=== PATIENT | male | born 1995 | race Caucasian/White ===

== ENCOUNTER 2025-02-15 18:49 | Emergency (ER) | payer OTHER, SELFPAY ==
[2025-02-15 18:58] VITALS: BP 135/88
[2025-02-15 19:12] LABS: Hematocrit 39.2 % (39.0-52.0); Hemoglobin 13.8 g/dL (13.0-18.0); Mean Corp Hgb Conc. 35.2 g/dL (33.0-37.0); Mean Corpuscular Volume 87.3 fL (80.0-94.0); Nucleated Red Blood Cells % 0 % (-); Platelet Count 243 10^3/uL (130-400); Red Cell Dist. Width 11.5 % (11.5-14.5)
[2025-02-15 19:36] LABS: ALT (SGPT) 30 U/L (0-50); AST (SGOT) 23 U/L (17-59); Albumin 4.8 g/dl (3.5-5.0); Alkaline Phosphatase 54 U/L (38-126); Blood Urea Nitrogen 19 mg/dl (9-20); Calcium 9.8 mg/dl (8.4-10.2); Carbon Dioxide 27 mmol/L (22-30); Chloride 104 mmol/L (98-107); Glucose 108 mg/dl (70-99); Potassium 4.2 mmol/L (3.5-5.1); Sodium 138 mmol/L (135-145); Total Protein 6.9 g/dl (6.3-8.2); eGFR > 60.00
[2025-02-15 19:47] LABS: Troponin I < 0.012 ng/ml
--- NOTE | 2025-02-15 20:24 | ED.GENMED ---
History of Present Illness
General
Chief Complaint: Chest Pain
Time Seen by Provider: 02/15/25 20:23
History of Present Illness
History of Present Illness:
TIME OF INITIAL EVALUATION
- 8:30 PM
REVIEW OF OLD RECORDS
- The patient has no significant past medical history, the patient was seen here 2012 with shortness of breath.
CHIEF COMPLAINT(S)
Mild chest pain and mid-back pain.
HISTORY OF PRESENT ILLNESS
The patient is a 29-year-old male who presented to the emergency department at approximately 3:30 p.m. with complaints of mild chest pain and mid-back pain. The patient describes the chest pain as being aggravated by taking a deep breath.
Specifically, exhalation is unaffected, but inhalation to a certain threshold level causes significant discomfort, rated as eight to ten out of ten in severity. He feels the sensation as though the lungs are constricted or tightened. The patient has
no history of similar episodes prior to this event. He reports being able to inhale only shallowly due to the pain, which has been disrupting his normal breathing pattern. The discomfort does not seem to be exacerbated by palpation of the chest, and
he denies any recent injuries. There are no reported instances of leg swelling. The patient was ill last week but denied any significant ongoing symptoms related to that illness.
PHYSICAL EXAM
General: Alert, no acute distress.
Skin: Warm, dry.
Head: Normocephalic, atraumatic.
Neck: Supple, trachea midline.
Eye Ears, nose, mouth and throat: Oral mucosa moist.
Cardiovascular: Normal peripheral perfusion, No edema.
Respiratory: Respirations are non-labored.
Gastrointestinal: Abdomen nondistended.
Back: Normal range of motion, Normal alignment.
Musculoskeletal: Normal ROM, normal strength.
Neurological: Alert and oriented to person, place, time and situation, No focal neurological deficit observed.
Psychiatric: Cooperative, appropriate mood & affect.
PLAN
- Obtain a chest X-ray to further evaluate the complaint of chest pain.
- Conduct screening tests to rule out a possible pulmonary embolism.
- Administer intravenous Toradol, a non-narcotic anti-inflammatory medication, to manage potential chest wall inflammation.
- Monitor the patient to assess response to the treatment and reassess if necessary.
DIFFERENTIAL DIAGNOSIS
The Differential Diagnosis includes, in no particular order and is not limited to:
1. Pleurisy
2. Pericarditis
3. Musculoskeletal chest wall inflammation
4. Pulmonary embolism
5. Costochondritis
6. Pneumonia
7. Gastroesophageal reflux disease (GERD)
8. Anxiety or panic attack
9. Pneumothorax
10. Myocardial ischemia
RADIOLOGY
- Chest x-ray shows no acute abnormality including no pneumothorax
EKG
- Sinus 69 borderline LVH, no acute abnormality, suspect early repolarization
LABS
- CBC and chemistries unremarkable, troponin less than 0.012
UPDATE
-SUMMARY OF ENCOUNTER
The patient, a 29-year-old male, presented to the emergency department with mild chest pain and mid-back pain, reporting that his discomfort was exacerbated by deep inhalation. His condition was evaluated with a chest X-ray and laboratory screening
tests, including a D-dimer, to rule out pulmonary embolism. An electrocardiogram (EKG) was conducted and showed no signs of a heart attack. The patients chest X-ray and blood tests did not indicate a pneumothorax or any signs of a blood clot. While
no definitive diagnosis was established, the chest pain was suspected to be due to non-cardiac causes, potentially stemming from inflammation of the lung lining or chest wall. The decision was made to manage his symptoms with non-narcotic
anti-inflammatory medication, and he was given reassurance and clear follow-up advice.
DISPOSITION
Discharge
ASSESSMENT
The assessment included consideration of possible chest wall inflammation or pleurisy, given the absence of findings indicative of more serious conditions, such as myocardial infarction, pulmonary embolism, or pneumothorax.
EMERGENCY TREATMENTS ADMINISTERED
The patient received intravenous ketorolac (Toradol) to manage inflammation-related chest pain.
PLAN
The plan included discharging the patient with instructions to continue using an anti-inflammatory medication such as ibuprofen to manage inflammation and discomfort. The patient was advised to seek further medical evaluation if symptoms worsened.
INDEPENDENT REVIEW OF LABS AND INTERPRETATION OF TESTS
My independent review of the D-dimer test indicates no evidence of blood clots.
My independent review of the EKG shows no signs of a heart attack.
My independent interpretation of the chest X-ray does not reveal a pneumothorax or any acute pathology.
PATIENT EDUCATION AND COUNSELING
The patient was counseled on the probable benign nature of the chest pain and was advised on the use of ibuprofen to alleviate inflammation. He was informed that the condition might take days to weeks for full resolution and was advised to monitor
for any worsening of symptoms.
FOLLOW-UP INSTRUCTIONS
The patient was advised to return to the emergency department if symptoms dramatically worsen and to follow up with primary care if needed. Instructions were given concerning the appropriate dosage of ibuprofen to manage symptoms at home.
MEDICATION RECONCILIATION
- Administered: Intravenous ketorolac (Toradol).
- Advised: [id number] ibuprofen 600-800 mg every 8 hours as needed for pain.
MEDICAL DECISION MAKING
- Number and Complexity of Problems Addressed: DDx list includes pleurisy, pericarditis, musculoskeletal chest wall inflammation, pulmonary embolism, costochondritis, pneumonia, gastroesophageal reflux disease (GERD), anxiety or panic attack,
pneumothorax, myocardial ischemia.
- Data:
Category 1:
My independent review of laboratory tests including D-dimer and EKG; my independent interpretation of the chest X-ray.
- Risk:
Consideration of Admission/Observation: Escalation of care including admission/observation was considered given the complexity and risk of the patients presenting complaint, exam findings, and/or their underlying comorbidities. However, ultimately I
feel the patient is safe for outpatient management with close follow-up. Reasoning: Work-up reassuring, does not reveal any acute life/organ threatening processes, patients symptoms well controlled upon reevaluation, reexamination is reassuring,
vitals are stable, patient agreeable with discharge, reliable for follow-up.
DIAGNOSIS
- Chest Pain, unspecified (R07.9)
- Inflammation of the chest wall (Costochondritis) (M94.0), suspected without confirmation.
Past History
Past History
ED Past Medical History: None
ED Past Surgical History: None
Social History
Tobacco: Non-smoker
Alcohol: None
Living: with family
Phy Exam
Physical Exam
Physical Exam:
See HPI
Scores
Heart Score for Chest Pain Patients
STEMI patient?: Not applicable
Course
Orders/Labs/Results
Orders:
Orders
02/15/25 18:57
Electrocardiogram (*1) Urgent
Reason for Study: Chest Pain
Cardiac Monitoring- Treatment ONCE
EKG- Treatment ONCE
IV Insert/Care/Rem.- Treatment PRN
O2 Therapy [RESP] Urgent
Titrate/Wean O2 to maintain O2 sat greater than (%): 90
Special Instructions: Maintain sats >/=90%
Pulse Ox/spot Check [RESP] Urgent
Quantity: 1
Special Instructions: ON ROOM AIR
02/15/25 19:05
Complete Blood Count/With Diff Urgent
Comprehensive Metabolic Panel Urgent
Troponin I Urgent
02/15/25 20:40
Ketorolac [Toradol] 15 mg IV NOW STA
CR Chest - 2 Views Urgent
Comment:
Reason For Exam: cp
02/15/25 21:02
D-Dimer Urgent
Abnormal Lab Results
02/15/25
19:05
RBC 4.49 L 10^6/uL
(4.70-6.10)
MPV 10.6 H fL
(7.4-10.4)
Absolute Monos (auto) 0.7 H 10^3/uL
(0.1-0.6)
Glucose 108 H mg/dl
(70-99)
02/15/25 19:05
02/15/25 19:05
Vital Signs
Initial and Last Documented VS:
Initial Vital Signs
Temp Pulse Resp BP Pulse Ox
36.9 C 72 18 135/88 98
02/15/25 18:58 02/15/25 18:58 02/15/25 18:58 02/15/25 18:58 02/15/25 18:58
Last Documented Vital Signs
Temp Pulse Resp BP Pulse Ox
36.9 C 72 18 135/88 98
02/15/25 18:58 02/15/25 18:58 02/15/25 18:58 02/15/25 18:58 02/15/25 20:25
*Pulse Oximetry
SaO2: 98
Oxygen Mode of Delivery: Room air
Patient hypoxic: no
*Critical Care Note
Total Time (30-74mins, 75-104mins- exclusive of procedures): Not Applicable
ED Attending Note
-
Portions of this chart may have been created with voice recognition software.� Occasional wrong word or��sound alike� substitutions may have occurred due to the inherent limitations of voice recognition software.
Discharge Plan
Departure
Patient Disposition: Home (Routine Discharge)
Date of Disposition: 02/15/25
Time of Disposition: 21:35
Patient with high blood pressure during this ER visit?: Yes
Discharge Problem:
Chest pain
Instructions: Costochondritis (DC), Chest Pain PCP Follow Up
Prescriptions:
No Action
No Current Medications
0
Referrals:
Santiago Chacon MD [Family Provider, Family Practice]
Activity Restrictions/Additional Instructions:
The cause of your symptoms is unclear. Follow with your primary care doctor. I recommend 3-4 agto-ngn-wwldera ibuprofen (Motrin) every 8 hours with food for a few days. Return here if worse.
Interventions
Interventions:
*Risk Screen - Suicide Last Done: 02/15/25 18:58
*Neglect/Abuse Screening Last Done: 02/15/25 18:58
Discharge Date and Time
Print Language: LITHUANIAN
[2025-02-15 21:28] LABS: D-Dimer < 0.27 ug/mlFEU (0.00-0.50)
[2025-02-15] MEDS: TORADOL 15 MG IV (21:29)
== END 2025-02-15 21:48 | disposition home or self-care (01) ==
LOC: EMR 18:49
PROVIDERS: EMERGENCY PHYSICIAN Emergency Medicine; FAMILY PHYSICIAN Family Medicine
DX: R07.9 Chest pain, unspecified (principal); M54.6 Pain in thoracic spine
CPT/HCPCS: 96374; 99285; 71046; 80053; 84484; 85025; 85379; 93005